=== PATIENT | female | born 1940 | race Caucasian/White ===

== ENCOUNTER → 2017-11-29 | Day surgery (SDC) | payer MEDICARE ==
[~2017-11-29] MED LIST: ATORVASTATIN CA20 MG PO; FENTANYL CITRATE/PF 100MCG/2 ML INJ ONE; MIDAZOLAM HCL 2 MG/2 ML VIAL ONE; OR PHACO EYE KIT ONE; PREOP PHACO EYE KIT ONE; SYNTHROID125 MCG PO
== END | disposition home or self-care (01) ==
LOC: OR 10:18
PROVIDERS: ATTEND Ophthalmology
DX: H25.11 Age-related nuclear cataract, right eye (principal); E78.5 Hyperlipidemia, unspecified; E03.9 Hypothyroidism, unspecified; I10 Essential (primary) hypertension
CPT/HCPCS: 66984; J2250

== ENCOUNTER → 2017-12-20 | Day surgery (SDC) | payer MEDICARE ==
[~2017-12-20] MED LIST changes: +LIDOCAINE HCL 1% 2 ML AMP ONE
== END | disposition home or self-care (01) ==
LOC: OR 09:56
PROVIDERS: ATTEND Ophthalmology
DX: H25.12 Age-related nuclear cataract, left eye (principal); M19.90 Unspecified osteoarthritis, unspecified site; E03.9 Hypothyroidism, unspecified; E78.5 Hyperlipidemia, unspecified; Z88.0 Allergy status to penicillin; Z87.891 Personal history of nicotine dependence
CPT/HCPCS: 66984; J2001; J2250; V2632